=== PATIENT | male | born 1985 | race Caucasian/White ===

== ENCOUNTER 2019-01-14 21:27 | Emergency (ER) | payer MEDICAID ==
[~2019-01-14] VITALS: Ht 157.5 cm; Wt 75.7 kg
[2019-01-14 21:37] VITALS: Ht 157.5 cm; Wt 75.7 kg
[2019-01-14 22:19] LABS: BASOPHIL % 0.7 % (0-2); CALCIUM 9.1 mg/dL (8.5-10.1); CARBON DIOXIDE 24.4 mmol/L (21-32); CHLORIDE SERUM 104 mmol/L (98-107); CREATININE SERUM 0.9 mg/dL (0.7-1.3); GFR1 > 60 mL/min; GLUCOSE SERUM 108 mg/dL (74-106); PLATELET COUNT 195 x10^3mcL (130-400); POTASSIUM SERUM 3.9 mmol/L (3.5-5.1); RED CELL DISTRIBUTION WIDTH 13.6 % (11.5-14.5); SODIUM SERUM 141 mmol/L (136-145)
[2019-01-14 22:33] LABS: ALBUMIN 4.2 g/dL (3.4-5.0); ALKALINE PHOSPHATASE 88 U/L (46-116); ALT/SGPT 58 U/L (16-63); AST/SGOT 56 U/L (15-37); BILIRUBIN TOTAL 0.4 mg/dL (0.20-1.00)
[2019-01-14 22:35] LABS: TOTAL PROTEIN, SERUM 8.6 g/dL (6.4-8.2)
[2019-01-15 00:21] VITALS: BP 118/78
== END 2019-01-15 00:44 | disposition home or self-care (01) ==
LOC: ED 21:27
PROVIDERS: Emergency Medicine
DX: M94.0 Chondrocostal junction syndrome [Tietze] (principal); J40 Bronchitis, not specified as acute or chronic
CPT/HCPCS: 36415; 83880; J2920; J7613; J7644; Q0092

== ENCOUNTER 2020-03-11 10:06 | Emergency (ER) | payer MEDICAID ==
[~2020-03-11] VITALS: Ht 162.6 cm; Wt 72.6 kg
[2020-03-11 10:26] VITALS: Ht 162.6 cm; Wt 72.6 kg
[2020-03-11 12:00] VITALS: BP 128/83
== END 2020-03-11 12:00 | disposition home or self-care (01) ==
LOC: ED 10:06
DX: L03.113 Cellulitis of right upper limb (principal); J45.909 Unspecified asthma, uncomplicated
CPT/HCPCS: 90715; J1885